=== PATIENT | male | born 1975 | race Caucasian/White ===

== ENCOUNTER 2017-03-30 22:42 | Emergency (ER) | payer BC ==
[2017-03-30] MEDS ORDERED: BACIGUENT PACKET TP ONE (23:30)
[2017-03-30] MEDS ORDERED: Adacel Vial IM ONE ×2 (23:33→23:37)
[2017-03-30] MEDS ORDERED: BACIGUENT PACKET ONE (23:37)
[2017-03-30] MEDS ORDERED: Marcaine 0.5% SDV 10 ML IJ ONE (23:38)
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
[2017-03-31] MEDS ORDERED: Marcaine 0.5% SDV 10 ML ONE (01:17)
[2017-03-31] MEDS ORDERED: KEFLEX 500 MG PO ONE (02:09)
[2017-03-31] MEDS ORDERED: KEFLEX 500 MG ONE (02:11)
[2017-03-31 02:34] VITALS: BP 136/91; PULSE 85; O2SAT 95
--- NOTE | 2017-03-31 09:59 | XRAY ---
Indication: Pain/laceration. Comparison: None 3 views of the right wrist demonstrates old distal fifth metacarpal fracture. No other bony, articular, or soft tissue abnormalities. Comment: Preliminary interpretation was made by [facility]. No discrepancy.
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
--- NOTE | 2017-03-31 10:02 | XRAY ---
Indication: Pain/laceration. Comparison: None 3 views of the left wrist demonstrates possible old fifth metacarpal shaft fracture deformity. No other bony, articular, or soft tissue abnormalities. Comment: Preliminary interpretation was made by [facility]. No critical discrepancy.
== END 2017-03-31 02:30 | disposition home or self-care (01) ==
LOC: ED 22:42
DX: S09.90XA Unspecified injury of head, initial encounter (principal); S00.01XA Abrasion of scalp, initial encounter; S61.511A Laceration without foreign body of right wrist, initial encounter; S00.81XA Abrasion of other part of head, initial encounter
CPT/HCPCS: 70450; 73110; 80307; 90715; 99284; 99285; A9270-GY